=== PATIENT | female | born 1960 | race Caucasian/White ===

== ENCOUNTER 2018-03-07 17:47 | Inpatient (IN) | payer SELFPAY ==
[2018-03-07 19:28] LABS: POC GLUCOSE 475 mg/dL (70-99)
[2018-03-07] MEDS: IV NORMAL SALINE 1000ML BAG 1,000 ML IV ×3 (19:43→22:12)
[2018-03-07 19:45] LABS: BASO # 0.1 x10^3/uL (0.0-0.2); BASO % 1 % (0-3); EOS % 0 % (0-3); HEMATOCRIT 45.3 % (36.0-47.0); HEMOGLOBIN 14.8 g/dL (12.0-15.5); LYMPH # 2.5 x10^3/uL (1.0-4.8); LYMPH % 15 % (24-48); MEAN CORPUSCULAR HEMOGLOBIN 26 pg (25-35); MEAN CORPUSCULAR HGB CONC 33 g/dL (31-37); MEAN CORPUSCULAR VOLUME 80 fL (79-100); MONO # 0.9 x10^3/uL (0.0-1.1); MONO % 5 % (0-9); NEUT # 13.4 x10^3uL (1.8-7.7); NEUT % 79 % (31-73); PLATELET COUNT 459 x10^3/uL (140-400); RED BLOOD COUNT 5.68 x10^6/uL (3.50-5.40); RED CELL DISTRIBUTION WIDTH 14.2 % (11.5-14.5); WHITE BLOOD COUNT 16.8 x10^3/uL (4.0-11.0)
[2018-03-07 19:46] LABS: ADD MAN DIFF? YES
[2018-03-07] MEDS: fentaNYL PF VIAL 100 MCG/2 ML VIAL IV ×3 (20:23→23:06)
[2018-03-07 20:28] LABS: TROPONINI < 0.017 ng/mL (0.000-0.055)
[2018-03-07 20:32] LABS: NT-PRO BNP 119 pg/mL (0-124)
[2018-03-07 20:35] LABS: ALBUMIN 2.8 g/dL (3.4-5.0); ALBUMIN/GLOBULIN RATIO 0.5 (1.0-1.7); ALK PHOS 136 U/L (46-116); ALT (SGPT) 22 U/L (14-59); ANION GAP 13 (6-14); AST (SGOT) 15 U/L (15-37); BLOOD UREA NITROGEN 18 mg/dL (7-20); BUN/CREATININE RATIO 23 (6-20); CALCIUM 8.8 mg/dL (8.5-10.1); CARBON DIOXIDE 24 mmol/L (21-32); CHLORIDE 95 mmol/L (98-107); CREATININE 0.8 mg/dL (0.6-1.0); GFR 73.7; MAGNESIUM 1.8 mg/dL (1.8-2.4); POTASSIUM 3.9 mmol/L (3.5-5.1); SODIUM 132 mmol/L (136-145); TOTAL BILIRUBIN 0.5 mg/dL (0.2-1.0)
[2018-03-07 20:38] LABS: GLUCOSE 506 mg/dL (70-99)
[2018-03-07 20:39] LABS: % BANDS 1 % (0-9); % LYMPHS 21 % (24-48); % MONOS 7 % (0-10); % SEGS 71 % (35-66); PLT ESTIMATE INCREASED (ADEQUATE)
[2018-03-07] MEDS ORDERED: PIP/TAZO PER PHARMACY MC (21:15)
[2018-03-07 21:38] LABS: BILIRUBIN,URINE NEGATIVE (NEG); CLARITY,URINE CLEAR; COLOR,URINE YELLOW; GLUCOSE,URINE >=1000 mg/dL (NEG); NITRITE,URINE NEGATIVE (NEG); PROTEIN,URINE 100 mg/dL (NEG-TRACE); UROBILINOGEN,URINE 0.2 mg/dL (0.2 mg/dL)
[2018-03-07 21:38] LABS: POC GLUCOSE 398 mg/dL (70-99)
[2018-03-07] MEDS: PIPERACILLIN/TAZOBACTAM 4.5 GM in IV NORMAL SALINE 100ML 100 ML IV (21:39)
[2018-03-07 21:44] LABS: AMPHETAMINE/METHAMPHETAMINE NEG (NEG); BARBITURATES NEG (NEG); BENZODIAZEPINES NEG (NEG); CANNABINOIDS NEG (NEG); COCAINE NEG (NEG); ETHANOL, URINE NEG (NEG); METHADONE NEG (NEG); OPIATES NEG (NEG); PHENCYCLIDINE NEG (NEG)
[2018-03-07 21:54] LABS: BACTERIA,URINE FEW /HPF (0-FEW); HYALINE CASTS, URINE MODERATE /HPF; RBC,URINE 0 /HPF (0-2); SQUAMOUS EPITHELIAL CELL,UR MOD /LPF; WBC,URINE >40 /HPF (0-4)
[2018-03-07] MEDS: IV 1/2 NORMAL SALINE 1,000 ML IV (22:10)
[2018-03-07] MEDS: IV DEXTROSE 5 %-0.45 % NACL 1,000 ML IV (22:12)
[2018-03-07] MEDS ORDERED: SODIUM PHOSPHATE 20 MMOL in IV DEXTROSE 5% 250 ML IV (22:15)
[2018-03-07] MEDS ORDERED: INSULIN REGULAR VIAL 150 UNIT in 0.9 % SODIUM CHLORIDE 150ML 150 ML IV ×2 (22:15→22:21)
[2018-03-07] MEDS ORDERED: SODIUM PHOSPHATE 10 MMOL in IV DEXTROSE 5% 250 ML IV (22:15)
[2018-03-07] MEDS ORDERED: SODIUM PHOSPHATE 40 MMOL in IV NORMAL SALINE 500ML BAG 500 ML IV (22:15)
[2018-03-07] MEDS ORDERED: ACETAMINOPHEN 325 MG TABLET. PO (23:00)
[2018-03-07] MEDS ORDERED: ONDANSETRON PF 4 MG/2 ML VIAL. IV (23:00)
[2018-03-07] MEDS: KETOROLAC 15 MG/ML VIAL. IV (23:00)
[2018-03-07] MEDS: VANCOMYCIN 2 GM in IV 1/2 NORMAL SALINE 500 ML IV (23:05)
[2018-03-08 00:08] LABS: LACTIC ACID 1.1 mmol/L (0.4-2.0)
[2018-03-08] MEDS ORDERED: DEXTROSE 50% 25 GM / 50ML DISP.SYRIN. IV ×2 (00:45)
[2018-03-08 00:47] LABS: POC GLUCOSE 352 mg/dL (70-99)
[2018-03-08] MEDS: IV NORMAL SALINE 1000ML BAG 1,000 ML IV ×7 (01:00→23:24)
[2018-03-08] MEDS: INSULIN ASPART 300 UNITS/3 ML INSULN.PEN SQ ×8 (01:01→22:47)
[2018-03-08] MEDS: cloNIDine HCL 0.1 MG TABLET PO (01:14)
[2018-03-08] MEDS: IV DEXTROSE 5 %-0.45 % NACL 1,000 ML IV ×2 (02:12→06:12)
[2018-03-08] MEDS: hydrALAZINE 20 MG/ML VIAL. IVP ×2 (02:23→06:24)
[2018-03-08] MEDS: VANCOMYCIN PER PHARMACY MC ×2 (02:28→12:57)
[2018-03-08 05:24] LABS: ANION GAP 11 (6-14); BLOOD UREA NITROGEN 15 mg/dL (7-20); CALCIUM 7.5 mg/dL (8.5-10.1); CARBON DIOXIDE 23 mmol/L (21-32); CHLORIDE 100 mmol/L (98-107); CREATININE 0.7 mg/dL (0.6-1.0); GFR 85.9; GLUCOSE 369 mg/dL (70-99); POTASSIUM 3.4 mmol/L (3.5-5.1); SODIUM 134 mmol/L (136-145)
[2018-03-08] MEDS: PIPERACILLIN/TAZOBACTAM 3.375 GM in IV NORMAL SALINE 50ML 50 ML IV ×3 (06:05→17:11)
[2018-03-08] MEDS: POTASSIUM CHLORIDE 20 MEQ TABLET.ER. PO (08:44)
[2018-03-08] MEDS: INSULIN DETEMIR 300 UNITS/3 ML INSULN.PEN. SQ ×2 (08:45→21:31)
[2018-03-08] MEDS ORDERED: DOCUSATE SODIUM 100 MG CAPSULE. PO (09:00)
[2018-03-08] MEDS ORDERED: ONDANSETRON PF 4 MG/2 ML VIAL. IV (09:00)
[2018-03-08] MEDS ORDERED: MAGNESIUM SULFATE 4GM 100 ML IV (09:00)
[2018-03-08] MEDS: VANCOMYCIN 2 GM in IV 1/2 NORMAL SALINE 500 ML IV ×2 (11:13→23:24)
[2018-03-08] MEDS: fentaNYL PF VIAL 100 MCG/2 ML VIAL IV (11:42)
[2018-03-08] MEDS: DEXAMETHASONE 0.1% OPHTH SOLUTION 5ML BOTTLE. AU (11:45)
[2018-03-08] MEDS: LIDOCAINE 2%/EPI 1:100,000 20 ML VIAL. IJ (11:45)
[2018-03-08] MEDS: CIPROFLOXACIN 0.3% OPHTH SOLUTION 5ML BOTTLE. AU (11:45)
[2018-03-08] MEDS: LISINOPRIL 20 MG TABLET PO (11:47)
[2018-03-08 12:32] LABS: POC GLUCOSE 312 mg/dL (70-99)
[2018-03-08] MEDS: ENOXAPARIN 40 MG/0.4 ML SYRINGE. SQ ×2 (13:29→21:22)
[2018-03-08] MEDS: MUPIROCIN 2 % TOPICAL CREAM 15GM TUBE. TP ×2 (13:30→21:22)
[2018-03-08 14:29] LABS: HEMOGLOBIN A1C 15.1 % (4.8-5.6)
[2018-03-08 14:29] LABS: MRSA BY PCR Negative (Negative)
[2018-03-08 16:31] LABS: POC GLUCOSE 302 mg/dL (70-99)
[2018-03-08 20:59] LABS: POC GLUCOSE 253 mg/dL (70-99)
[2018-03-08] MEDS ORDERED: INSULIN DETEMIR 300 UNITS/3 ML INSULN.PEN. SQ (21:00)
[2018-03-08] MEDS ORDERED: CIPROFLOXACIN 0.3% OPHTH SOLUTION 5ML BOTTLE. AU (21:00)
[2018-03-08] MEDS: CIPROFLOXACIN 0.3% OPHTH SOLUTION 5ML BOTTLE. AS (21:23)
[2018-03-09] MEDS: VANCOMYCIN 2 GM in IV 1/2 NORMAL SALINE 500 ML IV ×2 (00:20→11:52)
[2018-03-09] MEDS: ACETAMINOPHEN 325 MG TABLET. PO (00:42)
[2018-03-09] MEDS: PIPERACILLIN/TAZOBACTAM 3.375 GM in IV NORMAL SALINE 50ML 50 ML IV ×5 (02:14→23:38)
[2018-03-09 08:19] LABS: POC GLUCOSE 272 mg/dL (70-99)
[2018-03-09] MEDS: LISINOPRIL 20 MG TABLET PO (09:07)
[2018-03-09] MEDS: ENOXAPARIN 40 MG/0.4 ML SYRINGE. SQ ×2 (09:08→21:21)
[2018-03-09] MEDS: MUPIROCIN 2 % TOPICAL CREAM 15GM TUBE. TP ×3 (09:09→21:17)
[2018-03-09] MEDS: CIPROFLOXACIN 0.3% OPHTH SOLUTION 5ML BOTTLE. AS ×3 (09:09→21:32)
[2018-03-09] MEDS: INSULIN ASPART 300 UNITS/3 ML INSULN.PEN SQ ×6 (09:17→17:27)
[2018-03-09 10:20] LABS: ADD MAN DIFF? NO
[2018-03-09 10:28] LABS: BASO # 0.1 x10^3/uL (0.0-0.2); BASO % 1 % (0-3); EOS # 0.2 x10^3/uL (0.0-0.7); EOS % 2 % (0-3); HEMATOCRIT 40.3 % (36.0-47.0); HEMOGLOBIN 12.8 g/dL (12.0-15.5); LYMPH % 23 % (24-48); MEAN CORPUSCULAR HEMOGLOBIN 26 pg (25-35); MEAN CORPUSCULAR HGB CONC 32 g/dL (31-37); MEAN CORPUSCULAR VOLUME 81 fL (79-100); MONO # 0.5 x10^3/uL (0.0-1.1); MONO % 6 % (0-9); NEUT # 6.1 x10^3uL (1.8-7.7); NEUT % 69 % (31-73); PLATELET COUNT 341 x10^3/uL (140-400); RED BLOOD COUNT 4.97 x10^6/uL (3.50-5.40); RED CELL DISTRIBUTION WIDTH 14.6 % (11.5-14.5); WHITE BLOOD COUNT 8.9 x10^3/uL (4.0-11.0)
[2018-03-09 10:38] LABS: ANION GAP 7 (6-14); BLOOD UREA NITROGEN 15 mg/dL (7-20); CALCIUM 7.7 mg/dL (8.5-10.1); CARBON DIOXIDE 25 mmol/L (21-32); CHLORIDE 107 mmol/L (98-107); CREATININE 0.8 mg/dL (0.6-1.0); GFR 73.7; GLUCOSE 329 mg/dL (70-99); POTASSIUM 3.9 mmol/L (3.5-5.1); SODIUM 139 mmol/L (136-145)
[2018-03-09 10:44] LABS: VANC TR 13.8 mcg/mL (10.0-20.0)
[2018-03-09] MEDS: VANCOMYCIN PER PHARMACY MC (11:46)
[2018-03-09] MEDS: FUROSEMIDE 40 MG/4 ML VIAL. IVP (11:53)
[2018-03-09 11:55] LABS: POC GLUCOSE 244 mg/dL (70-99)
[2018-03-09] MEDS: LACTOBACILLUS RHAMNOSUS GG 1 CAPSULE. PO ×2 (15:28→21:30)
[2018-03-09 17:16] LABS: POC GLUCOSE 201 mg/dL (70-99)
[2018-03-09] MEDS: INSULIN DETEMIR 300 UNITS/3 ML INSULN.PEN. SQ (21:00)
[2018-03-09 21:48] LABS: POC GLUCOSE 226 mg/dL (70-99)
[2018-03-10] MEDS: hydrALAZINE 20 MG/ML VIAL. IVP (03:07)
[2018-03-10] MEDS: ACETAMINOPHEN 325 MG TABLET. PO ×2 (03:35→08:46)
[2018-03-10 05:32] LABS: ADD MAN DIFF? NO
[2018-03-10 05:49] LABS: BASO # 0.1 x10^3/uL (0.0-0.2); BASO % 1 % (0-3); EOS # 0.2 x10^3/uL (0.0-0.7); EOS % 2 % (0-3); HEMATOCRIT 40.3 % (36.0-47.0); LYMPH # 2.3 x10^3/uL (1.0-4.8); LYMPH % 23 % (24-48); MEAN CORPUSCULAR HEMOGLOBIN 26 pg (25-35); MEAN CORPUSCULAR HGB CONC 32 g/dL (31-37); MEAN CORPUSCULAR VOLUME 81 fL (79-100); MONO # 0.7 x10^3/uL (0.0-1.1); MONO % 7 % (0-9); NEUT # 6.5 x10^3uL (1.8-7.7); NEUT % 66 % (31-73); PLATELET COUNT 349 x10^3/uL (140-400); RED CELL DISTRIBUTION WIDTH 14.6 % (11.5-14.5); WHITE BLOOD COUNT 9.8 x10^3/uL (4.0-11.0)
[2018-03-10 06:00] LABS: ANION GAP 10 (6-14); BLOOD UREA NITROGEN 17 mg/dL (7-20); CALCIUM 8.3 mg/dL (8.5-10.1); CARBON DIOXIDE 24 mmol/L (21-32); CHLORIDE 106 mmol/L (98-107); CREATININE 0.8 mg/dL (0.6-1.0); GFR 73.7; GLUCOSE 237 mg/dL (70-99); POTASSIUM 3.4 mmol/L (3.5-5.1); SODIUM 140 mmol/L (136-145)
[2018-03-10 06:07] LABS: POC GLUCOSE 419 mg/dL (70-99)
[2018-03-10] MEDS: PIPERACILLIN/TAZOBACTAM 3.375 GM in IV NORMAL SALINE 50ML 50 ML IV ×3 (06:12→12:48)
[2018-03-10] MEDS: INSULIN ASPART 300 UNITS/3 ML INSULN.PEN SQ ×7 (08:00→17:48)
[2018-03-10 08:13] LABS: POC GLUCOSE 234 mg/dL (70-99)
[2018-03-10] MEDS: MUPIROCIN 2 % TOPICAL CREAM 15GM TUBE. TP ×4 (08:44→22:23)
[2018-03-10] MEDS: CIPROFLOXACIN 0.3% OPHTH SOLUTION 5ML BOTTLE. AS ×4 (08:45→22:22)
[2018-03-10] MEDS: ENOXAPARIN 40 MG/0.4 ML SYRINGE. SQ ×2 (08:47→22:25)
[2018-03-10] MEDS: LACTOBACILLUS RHAMNOSUS GG 1 CAPSULE. PO ×2 (08:47→22:22)
[2018-03-10] MEDS: LISINOPRIL 20 MG TABLET PO (08:47)
[2018-03-10] MEDS: amLODIPine BESYLATE 10 MG TABLET PO (09:00)
[2018-03-10] MEDS: VANCOMYCIN 2 GM in IV 1/2 NORMAL SALINE 500 ML IV (11:00)
[2018-03-10 11:57] LABS: POC GLUCOSE 234 mg/dL (70-99)
[2018-03-10 17:11] LABS: POC GLUCOSE 200 mg/dL (70-99)
[2018-03-10] MEDS: CARVEDILOL 6.25 MG TABLET. PO (17:38)
[2018-03-10 21:08] LABS: POC GLUCOSE 262 mg/dL (70-99)
[2018-03-10] MEDS: INSULIN DETEMIR 300 UNITS/3 ML INSULN.PEN. SQ (22:30)
[2018-03-11 05:27] LABS: ADD MAN DIFF? NO
[2018-03-11 05:42] LABS: BASO # 0.1 x10^3/uL (0.0-0.2); BASO % 1 % (0-3); EOS # 0.2 x10^3/uL (0.0-0.7); EOS % 2 % (0-3); HEMATOCRIT 40.4 % (36.0-47.0); HEMOGLOBIN 12.9 g/dL (12.0-15.5); LYMPH # 2.9 x10^3/uL (1.0-4.8); LYMPH % 28 % (24-48); MEAN CORPUSCULAR HEMOGLOBIN 26 pg (25-35); MEAN CORPUSCULAR HGB CONC 32 g/dL (31-37); MEAN CORPUSCULAR VOLUME 81 fL (79-100); MONO # 0.8 x10^3/uL (0.0-1.1); MONO % 7 % (0-9); NEUT # 6.4 x10^3uL (1.8-7.7); NEUT % 62 % (31-73); PLATELET COUNT 382 x10^3/uL (140-400); RED BLOOD COUNT 4.98 x10^6/uL (3.50-5.40); RED CELL DISTRIBUTION WIDTH 14.5 % (11.5-14.5); WHITE BLOOD COUNT 10.3 x10^3/uL (4.0-11.0)
[2018-03-11] MEDS: PIPERACILLIN/TAZOBACTAM 3.375 GM in IV NORMAL SALINE 50ML 50 ML IV ×2 (06:00)
[2018-03-11 06:01] LABS: ANION GAP 9 (6-14); BLOOD UREA NITROGEN 19 mg/dL (7-20); CALCIUM 8.5 mg/dL (8.5-10.1); CARBON DIOXIDE 27 mmol/L (21-32); CHLORIDE 105 mmol/L (98-107); CREATININE 0.9 mg/dL (0.6-1.0); GFR 64.3; GLUCOSE 198 mg/dL (70-99); POTASSIUM 3.6 mmol/L (3.5-5.1); SODIUM 141 mmol/L (136-145)
[2018-03-11 08:01] LABS: POC GLUCOSE 173 mg/dL (70-99)
[2018-03-11] MEDS: MUPIROCIN 2 % TOPICAL CREAM 15GM TUBE. TP ×2 (08:25→15:09)
[2018-03-11] MEDS: CIPROFLOXACIN 0.3% OPHTH SOLUTION 5ML BOTTLE. AS ×2 (08:25→15:09)
[2018-03-11] MEDS: LACTOBACILLUS RHAMNOSUS GG 1 CAPSULE. PO (08:25)
[2018-03-11] MEDS: amLODIPine BESYLATE 10 MG TABLET PO (08:26)
[2018-03-11] MEDS: CARVEDILOL 6.25 MG TABLET. PO (08:26)
[2018-03-11] MEDS: LISINOPRIL 20 MG TABLET PO (08:26)
[2018-03-11] MEDS: INSULIN ASPART 300 UNITS/3 ML INSULN.PEN SQ ×6 (08:34→17:25)
[2018-03-11] MEDS: AMOXICILLIN/K CLAV 875/125MG TABLET. PO (11:43)
[2018-03-11] MEDS: ENOXAPARIN 40 MG/0.4 ML SYRINGE. SQ (11:50)
[2018-03-11 11:53] LABS: POC GLUCOSE 165 mg/dL (70-99)
[2018-03-11] MEDS ORDERED: METOPROLOL SUCC 24HR ER 50 MG TAB.ER.24H. PO (16:00)
[2018-03-11 17:06] LABS: POC GLUCOSE 207 mg/dL (70-99)
[2018-03-11] MEDS: CARVEDILOL 12.5 MG TABLET. PO (17:18)
== END 2018-03-11 18:10 | disposition home or self-care (01) | DRG 155 ==
LOC: ER 17:47 → 4 NORTH 03-08 14:20 → 1 WEST ICU 22:22
PROVIDERS: Family Medicine
PROC: 0991XZZ Drainage of Left External Ear, External Approach (ICD-10-PCS; principal; 2018-03-08)
DX: H60.22 Malignant otitis externa, left ear (principal); R65.10 Systemic inflammatory response syndrome (SIRS) of non-infectious origin without acute organ dysfunction; E44.1 Mild protein-calorie malnutrition; E66.01 Morbid (severe) obesity due to excess calories; I80.8 Phlebitis and thrombophlebitis of other sites; Z68.43 Body mass index [BMI] 50.0-59.9, adult; E87.6 Hypokalemia; I16.0 Hypertensive urgency; D72.829 Elevated white blood cell count, unspecified; I10 Essential (primary) hypertension; I87.2 Venous insufficiency (chronic) (peripheral); I87.8 Other specified disorders of veins; Z82.49 Family history of ischemic heart disease and other diseases of the circulatory system; Z91.14 Patient's other noncompliance with medication regimen; Z91.19 Patient's noncompliance with other medical treatment and regimen; Z88.5 Allergy status to narcotic agent
CPT/HCPCS: 36415; 70450; 71045; 80048; 80053; 80202; 80307; 81001; 82962; 83036; 83605; 83735; 83880; 84100; 84484; 85007; 85025; 87040; 87071; 87075; 87086; 87186; 87205; 87641; 93005; 96365; 96366; 96368; 96375; 96376; 99285; 99285-25; J0360; J1650; J1815; J1940; J2543; J3010; J3370; J3490; J7030

== ENCOUNTER 2018-06-28 17:08 | Emergency (ER) | payer SELFPAY ==
[2018-06-28] MEDS ORDERED: CONTRAST GIVEN. MC (19:00)
[2018-06-28 19:04] LABS: ADD MAN DIFF? NO
[2018-06-28 19:08] LABS: BASO # 0.1 x10^3/uL (0.0-0.2); BASO % 1 % (0-3); EOS # 0.3 x10^3/uL (0.0-0.7); EOS % 2 % (0-3); HEMATOCRIT 40.7 % (36.0-47.0); HEMOGLOBIN 13.1 g/dL (12.0-15.5); LYMPH # 3.3 x10^3/uL (1.0-4.8); LYMPH % 20 % (24-48); MEAN CORPUSCULAR HEMOGLOBIN 26 pg (25-35); MEAN CORPUSCULAR HGB CONC 32 g/dL (31-37); MEAN CORPUSCULAR VOLUME 82 fL (79-100); MONO # 0.7 x10^3/uL (0.0-1.1); MONO % 4 % (0-9); NEUT # 12.3 x10^3uL (1.8-7.7); NEUT % 74 % (31-73); PLATELET COUNT 558 x10^3/uL (140-400); RED CELL DISTRIBUTION WIDTH 14.9 % (11.5-14.5); WHITE BLOOD COUNT 16.8 x10^3/uL (4.0-11.0)
[2018-06-28] MEDS: IV NORMAL SALINE 1000ML BAG 1,000 ML IV (19:11)
[2018-06-28] MEDS: ONDANSETRON PF 4 MG/2 ML VIAL. IV (19:12)
[2018-06-28] MEDS: DIPHTH,PERTUSS(ACELL),TET TOX 0.5 ML DISP.SYRIN. VAX IM (19:13)
[2018-06-28 19:17] LABS: ANION GAP 10 (6-14); BLOOD UREA NITROGEN 43 mg/dL (7-20); CALCIUM 9.2 mg/dL (8.5-10.1); CARBON DIOXIDE 26 mmol/L (21-32); CHLORIDE 100 mmol/L (98-107); CREATININE 1.1 mg/dL (0.6-1.0); GLUCOSE 169 mg/dL (70-99); POTASSIUM 4.3 mmol/L (3.5-5.1); SODIUM 136 mmol/L (136-145)
[2018-06-28] MEDS: IOHEXOL 300 MG/ML 100ML VIAL. IV (19:40)
== END 2018-06-28 21:19 | disposition home or self-care (01) ==
LOC: ER 21:19
DX: S30.821A Blister (nonthermal) of abdominal wall, initial encounter (principal); K42.9 Umbilical hernia without obstruction or gangrene; E11.9 Type 2 diabetes mellitus without complications; I10 Essential (primary) hypertension; E66.9 Obesity, unspecified; Z68.43 Body mass index [BMI] 50.0-59.9, adult; Z88.5 Allergy status to narcotic agent; X58.XXXA Exposure to other specified factors, initial encounter; Y93.89 Activity, other specified; Y92.89 Other specified places as the place of occurrence of the external cause; Y99.8 Other external cause status
CPT/HCPCS: 10060; 36415; 74177; 80048; 85025; 90471; 90715; 96374; 99285-25; J2405; J7030; Q9967

== ENCOUNTER 2019-05-21 10:24 | Inpatient (IN) | payer OTHER ==
[~2019-05-21] VITALS: Ht 157.5 cm; Wt 64.6 kg
[~2019-05-21 10:24] MED LIST: AMLO10TA8 PO; AMOX1TAB11 PO; CARV12.511 PO; CIPR2.5D AS; INSU100I17 SQ; INSU100I27 SQ; INSU300I SQ; LISI-130 PO; LISI1TAB5 PO; MUPI15CR8 TP; SULF1TAB24 PO; ceFAZolin SODIUM 3 GM in IV DEXTROSE 5% 100ML 100 ML IV PRN
[2019-05-21] MEDS ORDERED: LIDOCAINE WITH 8.4% SOD BICARB 3 ML DISP.SYRIN. INJ ONE (10:45)
[2019-05-21] MEDS ORDERED: DEXAMETHASONE SOD PHOS 4 MG/ML VIAL ONE (10:59)
[2019-05-21] MEDS ORDERED: PROPOFOL 20 ML IV ONE (10:59)
[2019-05-21] MEDS ORDERED: SEVOFLURANE 61 TO 120 MINUTES. IH ONE (10:59)
[2019-05-21] MEDS ORDERED: fentaNYL PF VIAL 100 MCG/2 ML VIAL ONE ×4 (10:59→16:46)
[2019-05-21] MEDS ORDERED: MIDAZOLAM HCL/PF 2 MG/2 ML VIAL. ONE (10:59)
[2019-05-21] MEDS ORDERED: ONDANSETRON PF 4 MG/2 ML VIAL. ONE (10:59)
[2019-05-21] MEDS ORDERED: LIDOCAINE 2% PF 5 ML VIAL. ONE (10:59)
[2019-05-21] MEDS ORDERED: ISOSULFAN BLUE 50 MG/5 ML VIAL. SQ ONE (11:20)
[2019-05-21] MEDS ORDERED: BUPIVAC MPF-EPI 0.5%-1:200000 30 ML VIAL. ONE (11:20)
[2019-05-21] MEDS ORDERED: IV RINGERS,LACTATED 1000ML 1,000 ML IV SCH (11:30)
[2019-05-21 12:00] LABS: ALBUMIN/GLOBULIN RATIO 0.6 (1.0-1.7); GFR 56.7; POTASSIUM 4.5 mmol/L (3.5-5.1); TOTAL BILIRUBIN 0.4 mg/dL (0.2-1.0); TOTAL PROTEIN 7.7 g/dL (6.4-8.2)
[2019-05-21 12:01] LABS: BASO # 0.1 x10^3/uL (0.0-0.2); BASO % 1 % (0-3); EOS # 0.2 x10^3/uL (0.0-0.7); EOS % 2 % (0-3); HEMATOCRIT 37.3 % (36.0-47.0); HEMOGLOBIN 12.2 g/dL (12.0-15.5); LYMPH # 2.5 x10^3/uL (1.0-4.8); LYMPH % 24 % (24-48); MEAN CORPUSCULAR HEMOGLOBIN 26 pg (25-35); MEAN CORPUSCULAR HGB CONC 33 g/dL (31-37); MEAN CORPUSCULAR VOLUME 81 fL (79-100); MONO # 0.6 x10^3/uL (0.0-1.1); MONO % 6 % (0-9); NEUT % 68 % (31-73); PLATELET COUNT 457 x10^3/uL (140-400); RED BLOOD COUNT 4.63 x10^6/uL (3.50-5.40); RED CELL DISTRIBUTION WIDTH 14.8 % (11.5-14.5); WHITE BLOOD COUNT 10.4 x10^3/uL (4.0-11.0)
--- NOTE | 2019-05-21 12:37 | RAD ---
Left breast radionuclide sentinel node localization, 05/21/2019: HISTORY: Breast cancer Under aseptic conditions and utilizing ethyl chloride spray for topical anesthesia, 1 mCi of filtered technetium 99m sulfur colloid mixed with 1 cc of 0.5% buffered lidocaine was injected subdermally in the periareolar region in 4 divided doses. No imaging was performed. The patient was sent to surgery in good condition. Electronically signed by: Aldo Dasilva MD (05/21/2019 12:34 PM) [facility]
[2019-05-21] MEDS ORDERED: PROCHLORPERAZINE 10 MG/2 ML VIAL. IV PRN (15:40)
[2019-05-21] MEDS ORDERED: fentaNYL PF VIAL 100 MCG/2 ML VIAL IV PRN ×2 (15:40→16:00)
[2019-05-21] MEDS ORDERED: PROCHLORPERAZINE 10 MG/2 ML VIAL. ONE (15:49)
[2019-05-21] MEDS: fentaNYL PF VIAL 100 MCG/2 ML VIAL IV PRN ×3 (15:55→17:00)
[2019-05-21] MEDS ORDERED: 0.9 % SODIUM CHLORIDE 10 ML DISP.SYRIN. IV PRN (16:00)
[2019-05-21] MEDS ORDERED: diphenhydrAMINE HCL 25 MG CAPSULE PO PRN (16:00)
[2019-05-21] MEDS ORDERED: traMADol 50 MG TABLET PO PRN (16:00)
[2019-05-21] MEDS ORDERED: ONDANSETRON PF 4 MG/2 ML VIAL. IV PRN (16:00)
--- NOTE | 2019-05-21 16:19 | PDOC ---
BRIEF OPERATIVE NOTE Date: May 21, 2019 Pre-Op Diagnosis left breast mass with skin involvement Post-Op Diagnosis invasive carcinoma, left breast Procedure Performed left breast biopsy left modified radical mastectomy Surgeon Jeff Cyber Incident Responder Francesca RODRIGUES Anesthesia Type: General Blood Loss 700cc IV Fluid 1600cc Specimens Obtained left breast biopsy left breast and axillary contents Findings invasive carcinoma, matted axillary LN's Complications none Operative Note Wk # [id number] SHYAM POSEY MD May 21, 2019 16:19
--- NOTE | 2019-05-21 16:38 | OP ---
DATE OF SURGERY: 05/21/2019 PREOPERATIVE DIAGNOSIS: Left breast mass with skin ulcer. POSTOPERATIVE DIAGNOSIS: Invasive carcinoma, left breast. PROCEDURE: 1. Left breast biopsy with frozen section. 2. Left modified radical mastectomy. SURGEON: Luke Posey MD RADIOGRAPHY TECHNICIAN: LILIA Stark. ANESTHESIA: General LMA. ESTIMATED BLOOD LOSS: 700 mL. INTRAVENOUS FLUIDS: 1600 mL. INDICATIONS: The patient is a 58-year-old lady with longstanding left breast mass, which over the last few months has ulcerated. She is brought for biopsy and possible mastectomy. DESCRIPTION OF PROCEDURE: The patient went to Nuclear Medicine, was injected for sentinel node, brought to the OR, given a general LMA and the left breast, arm and chest prepped and draped in usual sterile fashion. A biopsy was harvested from the lower portion of the ulcerated mass and sent for frozen section. Wound closed with a running stitch of 3-0 Prolene. Intraoperative report suggests invasive carcinoma. A 4 mL of Lymphazurin were injected circumareolarly intradermally in the quadrant corresponding to the lady's cancer. General breast massage was carried out. The skin flaps were outlined with a marking pen. Superior skin flap incised and developed with cautery dissection and we carried our dissection up into the axilla. However, matted lymph nodes were present without evidence of sentinel marking. In light of this, the inferior skin flap was developed, incised and the breast swept off the chest wall from medial to lateral. Once the breast and axillary contents were removed, we turned our attention to completing the dissection of the axillary nodes. Multiple palpable nodes remained and in mobilizing those out of the axilla some venous bleeding was encountered. This was controlled with a 5-0 Prolene suture. This allowed removal of the remaining palpable nodes. Wound was irrigated, evacuated and checked for adequate hemostasis while anesthesia gave a Valsalva to 35 cm of water. No bleeding seen. When a correct sponge and lap count was obtained, the wound was closed with interrupted inverted 3-0 Vicryl in the subcutaneous tissue, a subcuticular 4-0 Monocryl in the skin. Prior to closure, two drains were placed, the lateral drain up into the axilla, the medial drain under the superior skin flap, each secured with a silk stitch. Sterile dressings were applied. The patient awakened from her anesthetic and taken to the recovery room in satisfactory condition. LUKE POSEY MD DR: RITA/angeli JOB#: [id number] / [id number]
[2019-05-21 17:00] VITALS: BP 123/67
[2019-05-21] MEDS: POTASSIUM CL 20MEQ-0.45% NACL 1,000 ML IV SCH (17:02)
[2019-05-21 17:15] VITALS: BP 128/61
[2019-05-21 17:30] VITALS: BP 124/58
[2019-05-21 17:45] VITALS: BP 123/53
[2019-05-21 19:00] VITALS: BP 132/67
[2019-05-21] MEDS: DOCUSATE SODIUM 100 MG CAPSULE. PO SCH (21:05)
[2019-05-21] MEDS ORDERED: DEXTROSE 50% 25 GM / 50ML DISP.SYRIN. IV PRN (22:00)
[2019-05-21] MEDS ORDERED: INSULIN GLARGINE 300 UNITS/3 ML INSULN.PEN. SQ SCH (22:30)
[2019-05-21 22:56] VITALS: BP 119/60
[2019-05-21] MEDS ORDERED: INSULIN LISPRO 300 UNITS/3 ML INSULN.PEN. SQ ONE (23:00)
[2019-05-22] MEDS: POTASSIUM CL 20MEQ-0.45% NACL 1,000 ML IV SCH (02:55)
[2019-05-22 03:00] VITALS: BP 127/78
[2019-05-22 05:21] LABS: HEMATOCRIT 31.1 % (36.0-47.0)
[2019-05-22 07:00] VITALS: BP 142/64
[2019-05-22] MEDS ORDERED: INSULIN LISPRO 300 UNITS/3 ML INSULN.PEN. SQ SCH ×2 (07:30→08:00)
[2019-05-22] MEDS ORDERED: CARVEDILOL 12.5 MG TABLET. PO SCH (08:00)
[2019-05-22] MEDS: DOCUSATE SODIUM 100 MG CAPSULE. PO SCH (08:10)
[2019-05-22 08:13] VITALS: BP 142/64
[2019-05-22] MEDS ORDERED: DOCU-109 PO (08:43)
[2019-05-22] MEDS ORDERED: TRAM50TA PO (08:43)
--- NOTE | 2019-05-22 08:45 | DISCH ---
DISCHARGE INSTRUCTIONS Condition on Discharge Condition on Discharge: Stable Activity After Discharge Activity Instructions for Disc: Activity as tolerated Bathing Instructions: Shower-keep dressing dry Lifting Instructions after Dis: No heavy lifting, No pulling or pushing, Do not lift >10 pounds Driving Instructions after Dis: Do not drive today Weight Bearing Status after Di: As tolerated Diet after Discharge Diet after Discharge: Diabetic No Calorie Level Wound Incision Care Wound/Incision Care: Keep wound/cast CDI, May get incision wet, Reinforce dressing PRN Other wound/incision instructi: drain care as instructed Checks after Discharge Checks after discharge: Check blood press - daily, Check blood sugar, ac/hs Contacting the DRNicolás after DC Call your doctor for: Concerns you may have Follow-Up Follow up with: Dr Aguilar 1 week, call to schedule [phone] Treatment/Equipment after DC Adaptive Equipment Issued: None ABDELRAHMAN KINNEY APRN May 22, 2019 08:45
[2019-05-22] MEDS ORDERED: amLODIPine BESYLATE 10 MG TABLET PO SCH (09:00)
[2019-05-22] MEDS ORDERED: LISINOPRIL 20 MG TABLET PO SCH (09:00)
[2019-05-22] MEDS ORDERED: NON FORMULARY ITEM (Lisinopril/Hydrochlorothiazide (Lisinopril-Hctz 20-12.5 Mg Tab) 1 TAB) PO SCH (09:00)
[2019-05-22] MEDS ORDERED: ENOXAPARIN 40 MG/0.4 ML SYRINGE. SQ SCH (09:00)
[2019-05-22] MEDS ORDERED: hydroCHLOROthiazide 12.5 MG CAPSULE PO SCH (09:00)
--- NOTE | 2019-05-22 09:59 | PDOC ---
SURGICAL PROGRESS NOTE Subjective up to bedside chair sore ate regular breakfast Vital Signs Vital Signs Date Time Temp Pulse Resp B/P (MAP) Pulse Ox O2 Delivery O2 Flow Rate FiO2 05/22/19 09:29 98 Room Air 05/22/19 08:13 85 142/64 05/22/19 07:00 98.1 16 98.1 05/22/19 03:00 2.0 I&O Intake and Output 05/22/19 06:59 Intake Total 2360 ml Output Total 980 ml Balance 1380 ml Intake Oral 510 ml IV Total 1850 ml Output Drainage Total 280 ml Estimated Blood Loss 700 ml # Voids 1 PATIENT HAS A MADRIGAL: No General: Alert, No acute distress Skin: Other (MAYRA drains with small amount of bloody return) Labs Laboratory Tests Test 05/21/19 11:20 05/21/19 17:05 05/21/19 21:24 05/22/19 04:15 White Blood Count 10.4 x10^3/uL (4.0-11.0) Red Blood Count 4.63 x10^6/uL (3.50-5.40) Hemoglobin 12.2 g/dL (12.0-15.5) 10.0 g/dL (12.0-15.5) Hematocrit 37.3 % (36.0-47.0) 31.1 % (36.0-47.0) Mean Corpuscular Volume 81 fL (79-100) Mean Corpuscular Hemoglobin 26 pg (25-35) Mean Corpuscular Hemoglobin Concent 33 g/dL (31-37) 32 g/dL (31-37) Red Cell Distribution Width 14.8 % (11.5-14.5) Platelet Count 457 x10^3/uL (140-400) Neutrophils (%) (Auto) 68 % (31-73) Lymphocytes (%) (Auto) 24 % (24-48) Monocytes (%) (Auto) 6 % (0-9) Eosinophils (%) (Auto) 2 % (0-3) Basophils (%) (Auto) 1 % (0-3) Neutrophils # (Auto) 7.0 x10^3uL (1.8-7.7) Lymphocytes # (Auto) 2.5 x10^3/uL (1.0-4.8) Monocytes # (Auto) 0.6 x10^3/uL (0.0-1.1) Eosinophils # (Auto) 0.2 x10^3/uL (0.0-0.7) Basophils # (Auto) 0.1 x10^3/uL (0.0-0.2) Sodium Level 137 mmol/L (136-145) Potassium Level 4.5 mmol/L (3.5-5.1) Chloride Level 102 mmol/L (98-107) Carbon Dioxide Level 27 mmol/L (21-32) Anion Gap 8 (6-14) Blood Urea Nitrogen 30 mg/dL (7-20) Creatinine 1.0 mg/dL (0.6-1.0) Estimated GFR (Cockcroft-Gault) 56.7 BUN/Creatinine Ratio 30 (6-20) Glucose Level 191 mg/dL (70-99) Calcium Level 9.0 mg/dL (8.5-10.1) Total Bilirubin 0.4 mg/dL (0.2-1.0) Aspartate Amino Transf (AST/SGOT) 14 U/L (15-37) Alanine Aminotransferase (ALT/SGPT) 20 U/L (14-59) Alkaline Phosphatase 111 U/L (46-116) Total Protein 7.7 g/dL (6.4-8.2) Albumin 3.0 g/dL (3.4-5.0) Albumin/Globulin Ratio 0.6 (1.0-1.7) Glucose (Fingerstick) 212 mg/dL (70-99) 248 mg/dL (70-99) Laboratory Tests Test 05/21/19 11:20 05/21/19 17:05 05/21/19 21:24 05/22/19 04:15 White Blood Count 10.4 x10^3/uL (4.0-11.0) Red Blood Count 4.63 x10^6/uL (3.50-5.40) Hemoglobin 12.2 g/dL (12.0-15.5) 10.0 g/dL (12.0-15.5) Hematocrit 37.3 % (36.0-47.0) 31.1 % (36.0-47.0) Mean Corpuscular Volume 81 fL (79-100) Mean Corpuscular Hemoglobin 26 pg (25-35) Mean Corpuscular Hemoglobin Concent 33 g/dL (31-37) 32 g/dL (31-37) Red Cell Distribution Width 14.8 % (11.5-14.5) Platelet Count 457 x10^3/uL (140-400) Neutrophils (%) (Auto) 68 % (31-73) Lymphocytes (%) (Auto) 24 % (24-48) Monocytes (%) (Auto) 6 % (0-9) Eosinophils (%) (Auto) 2 % (0-3) Basophils (%) (Auto) 1 % (0-3) Neutrophils # (Auto) 7.0 x10^3uL (1.8-7.7) Lymphocytes # (Auto) 2.5 x10^3/uL (1.0-4.8) Monocytes # (Auto) 0.6 x10^3/uL (0.0-1.1) Eosinophils # (Auto) 0.2 x10^3/uL (0.0-0.7) Basophils # (Auto) 0.1 x10^3/uL (0.0-0.2) Sodium Level 137 mmol/L (136-145) Potassium Level 4.5 mmol/L (3.5-5.1) Chloride Level 102 mmol/L (98-107) Carbon Dioxide Level 27 mmol/L (21-32) Anion Gap 8 (6-14) Blood Urea Nitrogen 30 mg/dL (7-20) Creatinine 1.0 mg/dL (0.6-1.0) Estimated GFR (Cockcroft-Gault) 56.7 BUN/Creatinine Ratio 30 (6-20) Glucose Level 191 mg/dL (70-99) Calcium Level 9.0 mg/dL (8.5-10.1) Total Bilirubin 0.4 mg/dL (0.2-1.0) Aspartate Amino Transf (AST/SGOT) 14 U/L (15-37) Alanine Aminotransferase (ALT/SGPT) 20 U/L (14-59) Alkaline Phosphatase 111 U/L (46-116) Total Protein 7.7 g/dL (6.4-8.2) Albumin 3.0 g/dL (3.4-5.0) Albumin/Globulin Ratio 0.6 (1.0-1.7) Glucose (Fingerstick) 212 mg/dL (70-99) 248 mg/dL (70-99) Assessment/Plan POD 1 left MRM acute blood loss anemia obesity home later today with drains if able f/u first of next week SHYAM POSEY MD May 22, 2019 09:59
--- NOTE | 2019-05-22 10:01 | PDOC3 ---
Discharge Summary Visit Information Date of Admission: May 21, 2019 Date of Discharge: May 22, 2019 Admitting Diagnosis Comment: left breast mass Final Diagnosis invasive carcinoma left breast Brief Hospital Course Allergies Allergies Coded Allergies Type Severity Reaction Last Updated Verified codeine Allergy Intermediate "i dont know it was along time ago" 05/20/19 Yes sulfamethoxazole Allergy Intermediate RASH ALL OVER 05/20/19 Yes trimethoprim Allergy Intermediate RASH ALL OVER 05/20/19 Yes Vital Signs Vital Signs Date Time Temp Pulse Resp B/P (MAP) Pulse Ox O2 Delivery O2 Flow Rate FiO2 05/22/19 09:29 98 Room Air 05/22/19 08:13 85 142/64 05/22/19 07:00 98.1 16 98.1 05/22/19 03:00 2.0 Lab Results Laboratory Tests Test 05/21/19 11:20 05/21/19 17:05 05/21/19 21:24 05/22/19 04:15 White Blood Count 10.4 x10^3/uL (4.0-11.0) Red Blood Count 4.63 x10^6/uL (3.50-5.40) Hemoglobin 12.2 g/dL (12.0-15.5) 10.0 g/dL (12.0-15.5) Hematocrit 37.3 % (36.0-47.0) 31.1 % (36.0-47.0) Mean Corpuscular Volume 81 fL (79-100) Mean Corpuscular Hemoglobin 26 pg (25-35) Mean Corpuscular Hemoglobin Concent 33 g/dL (31-37) 32 g/dL (31-37) Red Cell Distribution Width 14.8 % (11.5-14.5) Platelet Count 457 x10^3/uL (140-400) Neutrophils (%) (Auto) 68 % (31-73) Lymphocytes (%) (Auto) 24 % (24-48) Monocytes (%) (Auto) 6 % (0-9) Eosinophils (%) (Auto) 2 % (0-3) Basophils (%) (Auto) 1 % (0-3) Neutrophils # (Auto) 7.0 x10^3uL (1.8-7.7) Lymphocytes # (Auto) 2.5 x10^3/uL (1.0-4.8) Monocytes # (Auto) 0.6 x10^3/uL (0.0-1.1) Eosinophils # (Auto) 0.2 x10^3/uL (0.0-0.7) Basophils # (Auto) 0.1 x10^3/uL (0.0-0.2) Sodium Level 137 mmol/L (136-145) Potassium Level 4.5 mmol/L (3.5-5.1) Chloride Level 102 mmol/L (98-107) Carbon Dioxide Level 27 mmol/L (21-32) Anion Gap 8 (6-14) Blood Urea Nitrogen 30 mg/dL (7-20) Creatinine 1.0 mg/dL (0.6-1.0) Estimated GFR (Cockcroft-Gault) 56.7 BUN/Creatinine Ratio 30 (6-20) Glucose Level 191 mg/dL (70-99) Calcium Level 9.0 mg/dL (8.5-10.1) Total Bilirubin 0.4 mg/dL (0.2-1.0) Aspartate Amino Transf (AST/SGOT) 14 U/L (15-37) Alanine Aminotransferase (ALT/SGPT) 20 U/L (14-59) Alkaline Phosphatase 111 U/L (46-116) Total Protein 7.7 g/dL (6.4-8.2) Albumin 3.0 g/dL (3.4-5.0) Albumin/Globulin Ratio 0.6 (1.0-1.7) Glucose (Fingerstick) 212 mg/dL (70-99) 248 mg/dL (70-99) Laboratory Tests Test 05/21/19 11:20 05/21/19 17:05 05/21/19 21:24 05/22/19 04:15 White Blood Count 10.4 x10^3/uL (4.0-11.0) Red Blood Count 4.63 x10^6/uL (3.50-5.40) Hemoglobin 12.2 g/dL (12.0-15.5) 10.0 g/dL (12.0-15.5) Hematocrit 37.3 % (36.0-47.0) 31.1 % (36.0-47.0) Mean Corpuscular Volume 81 fL (79-100) Mean Corpuscular Hemoglobin 26 pg (25-35) Mean Corpuscular Hemoglobin Concent 33 g/dL (31-37) 32 g/dL (31-37) Red Cell Distribution Width 14.8 % (11.5-14.5) Platelet Count 457 x10^3/uL (140-400) Neutrophils (%) (Auto) 68 % (31-73) Lymphocytes (%) (Auto) 24 % (24-48) Monocytes (%) (Auto) 6 % (0-9) Eosinophils (%) (Auto) 2 % (0-3) Basophils (%) (Auto) 1 % (0-3) Neutrophils # (Auto) 7.0 x10^3uL (1.8-7.7) Lymphocytes # (Auto) 2.5 x10^3/uL (1.0-4.8) Monocytes # (Auto) 0.6 x10^3/uL (0.0-1.1) Eosinophils # (Auto) 0.2 x10^3/uL (0.0-0.7) Basophils # (Auto) 0.1 x10^3/uL (0.0-0.2) Sodium Level 137 mmol/L (136-145) Potassium Level 4.5 mmol/L (3.5-5.1) Chloride Level 102 mmol/L (98-107) Carbon Dioxide Level 27 mmol/L (21-32) Anion Gap 8 (6-14) Blood Urea Nitrogen 30 mg/dL (7-20) Creatinine 1.0 mg/dL (0.6-1.0) Estimated GFR (Cockcroft-Gault) 56.7 BUN/Creatinine Ratio 30 (6-20) Glucose Level 191 mg/dL (70-99) Calcium Level 9.0 mg/dL (8.5-10.1) Total Bilirubin 0.4 mg/dL (0.2-1.0) Aspartate Amino Transf (AST/SGOT) 14 U/L (15-37) Alanine Aminotransferase (ALT/SGPT) 20 U/L (14-59) Alkaline Phosphatase 111 U/L (46-116) Total Protein 7.7 g/dL (6.4-8.2) Albumin 3.0 g/dL (3.4-5.0) Albumin/Globulin Ratio 0.6 (1.0-1.7) Glucose (Fingerstick) 212 mg/dL (70-99) 248 mg/dL (70-99) Brief Hospital Course Ms. Oneal is a 58 old female who presented with an ulcerated left breast mass for biopsy and treatment. Underwent bx with f/s and a left MRM. Discharge Information Condition at Discharge: Stable Follow Up: As Needed Disposition/Orders: D/C to Home Scheduled Amlodipine Besylate (Amlodipine Besylate) 10 Mg Tablet, 10 MG PO DAILY for 30 Days, #30 Prescribed by: MARVIN MOYA MD on 03/11/18 163 Last Taken: Unknown Dose on 05/21/19 0700 Last Action: Continued on 05/21/192142 by ALEJANDRA ANDREA Carvedilol (Carvedilol ) 12.5 Mg Tablet, 12.5 MG PO BIDWMEALS for 30 Days, #60 Prescribed by: MARVIN MOYA MD on 03/11/18 1634 Last Taken: Unknown Dose on 05/21/19 0700 Last Action: Continued on 05/21/192142 by ALEJANDRA ANDREA Docusate Sodium (Colace) 100 Mg Capsule, 100 MG PO BID for constipation for 30 Days, #60 Prescribed by: Jyoti Sharma on 05/22/19 0843 Insulin Aspart (Novolog Flexpen) 100 Unit/1 Ml Insuln.pen, 18 UNITS SQ TIDAC for 30 Days, #10 Prescribed by: MARVIN MOYA MD on 03/11/18 1634 Last Action: Converted on 05/21/192142 by ALEJANDRA ANDREA Insulin Glargine,Hum.rec.anlog (Toujeo Solostar) 300 Unit/1 Ml Insuln.pen, 45 UNIT SQ QHS for DIABETES, (Reported) Entered as Reported by: ALEJANDRO ALATORRE on 05/20/19 1247 Last Taken: Unknown Dose on 05/20/19 1800 Last Action: Converted on 05/21/192142 by ALEJANDRA ANDREA Lisinopril/Hydrochlorothiazide (Lisinopril-Hctz 20-12.5 Mg Tab) 1 Each Tablet, 1 TAB PO DAILY for HYPERTENSION, #30 Ref 5 (Reported) Entered as Reported by: ALEJANDRO ALATORRE on 05/20/19 1246 Last Action: Converted on 05/21/192142 by ALEJANDRA ANDREA Scheduled PRN Tramadol Hcl (Tramadol Hcl) 50 Mg Tablet, 50 MG PO PRN Q6HRS PRN for PAIN, #30 Ref 0 Prescribed by: Jyoti Sharma on 05/22/19 0843 SHYAM POSEY MD May 22, 2019 10:01
--- NOTE | 2019-05-22 10:35 | NUR ---
Discharge Note: JENNIFER CARNEY [address] Discharge instructions and discharge home medications reviewed with Patient and daughter and a copy given. All questions have been answered and understanding verbalized. The following instructions and handouts were given: information about mastectomy follow up care, follow up appointments, prescription, drain care. Discontinued lines and drains: IV line in right forearm removed, catheter tip intact. Patient discharged to home with self care with daughter, wheelchair used for mobility to discharge vehicle.
--- NOTE | 2019-05-22 10:39 | NUR ---
SW following for discharge planning. Discussed with RN, pt is from home. RN advised no SW needs at this time and anticipates pt will discharge home this afternoon with self care. SW will continue to follow, should any discharge needs arise.
[2019-05-22] MEDS ORDERED: INSU100I17 SQ (17:04)
== END 2019-05-22 10:35 | disposition home or self-care (01) | DRG 580 ==
LOC: NM 10:24 → 4 NORTH 16:21
PROVIDERS: ADMIT Surgery; ATTEND Surgery
PROC: 07B60ZZ Excision of Left Axillary Lymphatic, Open Approach (ICD-10-PCS; 2019-05-21)
PROC: C71L1ZZ Planar Nuclear Medicine Imaging of Upper Chest Lymphatics using Technetium 99m (Tc-99m) (ICD-10-PCS; 2019-05-21)
PROC: 0HTU0ZZ Resection of Left Breast, Open Approach (ICD-10-PCS; principal; 2019-05-21 12:30)
PROC: 0HBU0ZX Excision of Left Breast, Open Approach, Diagnostic (ICD-10-PCS; 2019-05-21 12:30)
DX: C50.912 Malignant neoplasm of unspecified site of left female breast (principal); D62 Acute posthemorrhagic anemia; E66.9 Obesity, unspecified; Z68.26 Body mass index [BMI] 26.0-26.9, adult; Z88.5 Allergy status to narcotic agent; Z88.2 Allergy status to sulfonamides
CPT/HCPCS: 36415; 38792; 80053; 82962; 85014; 85018; 85025; 86850; 86900; 86901; 96374; A7015; A9541; J0690; J0780; J1100; J1650; J1815; J2001; J2250; J2405; J2704; J3010; J3490; J7120; Q9968